=== PATIENT | female | born 1980 | race Caucasian/White ===

== ENCOUNTER → 2020-05-17 | Outpatient (CLI) | payer BC ==
[~2020-05-17] MED LIST: MULVITMINE PO; OMEP20ER PO; OXYACE5T PO; PROM25 PO; Protonix40 MG PO; RANI150 PO; SUCR1 PO
[2020-05-17 14:34] LABS: Candida species (DNA Probe) Negative (NEGATIVE); G. vaginalis (DNA Probe) Negative (NEGATIVE); T. vaginalis (DNA Probe) Negative (NEGATIVE)
== END | disposition home or self-care (01) ==
LOC: LAB SHORT 13:01 → LAB 13:01
PROVIDERS: Nurse Practitioner Family
DX: N34.2 Other urethritis (principal); R10.9 Unspecified abdominal pain
CPT/HCPCS: 87480; 87510; 87529; 87660

== ENCOUNTER → 2022-06-01 | Outpatient (CLI) | payer BC | END | disposition home or self-care (01) | LOC: LAB SHORT 10:30 → LAB 10:30 | DX: N39.0 Urinary tract infection, site not specified (principal) | CPT/HCPCS: 87077; 87086; 87186 ==

== ENCOUNTER 2023-11-02 08:37 | Day surgery (SDC) | payer BC ==
[~2023-11-02] VITALS: Ht 165.1 cm; Wt 87.5 kg
[~2023-11-02 08:37] MED LIST changes: +MAGNESIUM SULF100 MG PO; +PANT20 PO; +VITAMIN D310 MC4 PO; +Vitamin C100 MG PO; +ZINC15 PO
[2023-11-02 10:13] VITALS: BP 109/73
== END 2023-11-02 10:22 | disposition home or self-care (01) ==
LOC: ORSCSDS 08:37
PROVIDERS: Surgery
PROC: 0DJD8ZZ Inspection of Lower Intestinal Tract, Via Natural or Artificial Opening Endoscopic (ICD-10-PCS; principal; 2023-11-02 09:45)
DX: K62.5 Hemorrhage of anus and rectum (principal); K64.8 Other hemorrhoids; K21.9 Gastro-esophageal reflux disease without esophagitis; E78.00 Pure hypercholesterolemia, unspecified; Z79.899 Other long term (current) drug therapy
CPT/HCPCS: J2704; J7120